=== PATIENT | female | born 1950 | race African-American/Black ===

== ENCOUNTER → 2023-02-18 | Day surgery (SDC) | payer OTHER | END | disposition home or self-care (01) | LOC: JRADUS-SUR 09:15 | PROVIDERS: ATTEND Surgery | PROC: BH01ZZZ Plain Radiography of Left Breast (ICD-10-PCS; principal; 2023-02-18) | DX: C50.912 Malignant neoplasm of unspecified site of left female breast (principal) | CPT/HCPCS: 19281; A4648 ==

== ENCOUNTER 2023-02-19 05:20 | Day surgery (SDC) | payer OTHER ==
[2023-02-16 14:19] VITALS: BMI 31.0
[2023-02-19] MEDS ORDERED: LIDOCAINE HCL 1%, 10 MG/ML (10ML VIAL) MDV ONE (11:39)
[2023-02-19] MEDS ORDERED: ISOSULFAN BLUE 50 MG/5 ML VIAL SQ ONE (11:40)
[2023-02-19] MEDS ORDERED: MIDAZOLAM HCL 2 MG/2 ML SINGLE DOSE VIAL ONE (12:32)
[2023-02-19] MEDS ORDERED: PROPOFOL 40 ML ONE (12:32)
[2023-02-19] MEDS ORDERED: SODIUM CHLORIDE 0.9% P/F 10 ML VIAL IJ ONE (12:40)
[2023-02-19] MEDS ORDERED: ceFAZolin SODIUM 1 GM VIAL ONE (12:40)
[2023-02-19] MEDS ORDERED: ceFAZolin SODIUM 1 GM VIAL IVPB ONE (12:42)
[2023-02-19] MEDS ORDERED: DEXAMETHASONE SOD PHOSPHATE 4 MG/1 ML VIAL ONE (12:43)
[2023-02-19] MEDS ORDERED: KETOROLAC TROMETHAMINE 30 MG/1 ML VIAL ONE (12:43)
[2023-02-19] MEDS ORDERED: ONDANSETRON 4 MG/2 ML VIAL ONE (12:43)
[2023-02-19] MEDS ORDERED: LIDOCAINE HCL 1%, 10 MG/ML (20ML VIAL) INF ONE ×2 (13:01)
[2023-02-19] MEDS ORDERED: ONDANSETRON 4 MG/2 ML VIAL IVPUSH PRN (14:38)
[2023-02-19] MEDS ORDERED: PROMETHAZINE HCL 25 MG/1 ML VIAL IVPB PRN (14:38)
[2023-02-19] MEDS ORDERED: LACTATED RINGERS SOLUTION 1,000 ML IV SCH (14:45)
[2023-02-19] MEDS ORDERED: oxyCODONE HCL 5 MG TABLET PO PRN (15:03)
[2023-02-19] MEDS ORDERED: ACETAMINOPHEN 325 MG TABLET (FP) PO PRN (15:04)
[2023-02-19] MEDS ORDERED: ATORVASTATIN CA 80 MG TABLET (FP) PO SCH (22:00)
[2023-02-19] MEDS: hydrALAZINE HCL 50 MG TABLET (FP) PO SCH (22:45)
[2023-02-19] MEDS: CARVEDILOL 12.5 MG TABLET (FP) PO SCH (22:45)
[2023-02-20 05:42] VITALS: RESP 20
[2023-02-20] MEDS ORDERED: PATIENT'S OWN MEDICATION (NON-FORMULARY) (Valsartan/Hydrochlorothiazide [Valsartan-Hctz 32 PO SCH (10:00)
[2023-02-20] MEDS ORDERED: amLODIPine BESYLATE 10 MG TABLET (FP) PO SCH (10:00)
[2023-02-20] MEDS ORDERED: HYDROCHLOROTHIAZIDE 25 MG TABLET (FP) PO SCH (10:00)
[2023-02-20] MEDS ORDERED: VALSARTAN 160 MG TABLET PO SCH (10:00)
[2023-02-20] MEDS: hydrALAZINE HCL 50 MG TABLET (FP) PO SCH (11:12)
[2023-02-20] MEDS: CARVEDILOL 12.5 MG TABLET (FP) PO SCH (11:12)
[2023-02-20 12:27] VITALS: BP 123/64; PULSE 80; TEMP 98.4
== END 2023-02-20 14:33 | disposition home or self-care (01) ==
LOC: JASUSAT 05:20 → JASU-SURG 05:20 → J6S 16:31 → JASUSAT 02-20 14:33
PROVIDERS: ATTEND Surgery
PROC: 07B60ZX Excision of Left Axillary Lymphatic, Open Approach, Diagnostic (ICD-10-PCS; 2023-02-19)
PROC: C71L1ZZ Planar Nuclear Medicine Imaging of Upper Chest Lymphatics using Technetium 99m (Tc-99m) (ICD-10-PCS; 2023-02-19)
PROC: 0HBU0ZZ Excision of Left Breast, Open Approach (ICD-10-PCS; principal; 2023-02-19 12:30)
DX: C50.912 Malignant neoplasm of unspecified site of left female breast (principal)
CPT/HCPCS: 76098-TC-FY; 78195-TC; 82962; 88307-TC; 94760; A9541; C9803-CS; U0003; U0005